=== PATIENT | female | born 2000 | race Caucasian/White ===

== ENCOUNTER → 2025-05-12 | Day surgery (SDC) | payer OTHER ==
[~2025-05-12] MED LIST: HYDROXYZINE HCL25 MG PO; LACTATED RINGER'S 1,000 ML ONE; LIDOCAINE HCL 2% LOCAL INJ 5 ML SDV VIAL INJ ONE; MIDAZOLAM HCL 2 MG/2 ML VIAL ONE; PROPOFOL IV EMULSION 10 MG/ML 20 ML VIAL ONE
[2025-05-12 17:45] VITALS: TEMP 99
[2025-05-12 18:00] VITALS: BP 121/78; PULSE 108; RESP 16; O2SAT 99
== END | disposition home or self-care (01) ==
LOC: OR 16:24
PROVIDERS: ATTEND Internal Medicine Gastroenterology
DX: K29.50 Unspecified chronic gastritis without bleeding (principal); K44.9 Diaphragmatic hernia without obstruction or gangrene; K62.5 Hemorrhage of anus and rectum; N39.0 Urinary tract infection, site not specified; F41.9 Anxiety disorder, unspecified
CPT/HCPCS: 43239; 81025; J2003; J2250